=== PATIENT | male | born 1975 | race Two or more races ===

== ENCOUNTER 2024-08-03 11:09 | Outpatient (AMB) | payer OTHER, SELFPAY ==
--- NOTE | 2024-08-03 11:42 | AM.OFFWIN_ITS ---
Intake Vital Signs 08/03/24 11:43 Height 5 ft 7 in Weight 198 lb BMI 31.0 BP 122/80 Blood Pressure Location Rt brachial Position Sitting Pulse 66 Pulse Source Pulse Oximeter Temp 98.8 F Temp Source Oral Pulse Oximetry (%) 98 Oxygen Delivery Method Room Air Intake Visit Reasons: [employer] 2ND SHIFT Flu like symptoms Intake Note: Patient here for cough, chills, loss of appetite, weakness, dizziness and fatigued that started Friday. Patient Tobacco Use Status: Current someday Tobacco user Allergies No Known Allergies Allergy (Verified 08/03/24 11:44) Do you need a note to return to daycare/school/sports/work: No HPI HPI Comments History of Present Illness Details History - The patient is a 48-year-old male pres enting with symptoms consistent with an influenza-like illness. - Symptoms initiated 4 days ago, charact erized by a persistence of subjective fever - No official temperature readings were taken; however, the patient reports fluctuating fever perceptions. - Denies any association of body aches, respiratory difficulties such as shortness of breath, and wheezing with the current illness. - The patient is a light smoker but has no significant respiratory history and no use of inhalers. - Reports significant fatigue and decrea sed appetite. - Has taken no pharmacological agents fo r symptom relief to date. - Patient did not exhibit family contagi on or previous flu vaccinations for this season, nor had testing for COVID at home. Physical Exam General: Cooperative, healthy appearing, comfortable and no acute distress Orientation/consciousness: Patient oriented x3 Limitations: No limitations Head: Normal to inspection Ears: Hearing grossly normal bilaterally, external ears normal and TM's normal bilaterally Nose: Normal external nose present, Normal nares present and No nasal discharge present Face and sinus: Normal facial exam and Yes sinuses nontender Mouth: Normal oral and palatal mucosa present and moist mucous membranes Throat: Yes tonsils normal, Yes uvula midline. Posterior oropharynx erythema Eyes: Appearance normal, both eyes and all related structures Neck: Normal visual inspection Respiratory: Clear to auscultation bilaterally. Normal respiratory effort, able to speak in complete sentences, no respiratory distress, not tachypneic, no tripod positioning and no use of accessory muscles Cardiovascular: Regular rate and rhythm. Normal S1 and S2 Skin: No rashes or lesions noted Neuro: Patient oriented x3 Extremities: Normal to inspection and Yes no clubbing, cyanosis or edema PFSH Social History Patient Tobacco Use Status: Current someday Tobacco user Review of Systems Const All systems reviewed & are unremarkable except as noted in HPI and below Physical Exam Vital Signs: Last Vital Signs Temp 98.8 F 08/03/24 11:43 Pulse 66 08/03/24 11:43 BP 122/80 08/03/24 11:43 Pulse Ox 98 08/03/24 11:43 Oxygen Delivery Method Room Air 08/03/24 11:43 BMI result Body Mass Index 31.0 Assessment & Plan Assessment & Plan (1) Influenza-like illness: Code(s): J11.1 - Influenza due to unidentified influenza virus with other respiratory manifestations Plan: The patient exhibits symptoms consistent with an influenza-like illness. Testing for influenza, RSV, and COVID-19 was conducted with results expected by tomorrow. As Tamiflu treatment is no longer suitable due to timing, supportive therapy including adequate hydration, rest, and use of acetaminophen and ibuprofen is advised for symptom relief. Prognosis suggests the potential for a prolonged illness, lasting possibly two weeks with intermittent symptom fluctuation. The patient did not require a work note and is advised to resume normal activities once symptoms diminish and diagnostic results guide any necessary further intervention. Patient was informed and verbally consented to the use of an ambient scribe for clinic note documentation during this visit Orders: Orders SARS-CoV2/FLU/RSV Today R09.89 - Other specified symptoms and signs involving the circulatory and respiratory systems Coding Level of Care Code New Pt Level 3 (07660) Diagnoses Influenza-like illness J11.1
[2024-08-03 11:43] VITALS: BP 122/80; PULSE 66; TEMP 37.1; O2SAT 98; BMI 31.0
== END 2024-08-03 12:32 | disposition home or self-care (01) ==
PROVIDERS: Visit Provider Physician Assistant
DX: J11.1 Influenza due to unidentified influenza virus with other respiratory manifestations (principal)

== ENCOUNTER 2024-08-03 11:09 | Outpatient (REF) | payer OTHER, SELFPAY ==
[2024-08-03 14:51] LABS: Influenza A PCR POSITIVE (Negative); Influenza B PCR NEGATIVE (Negative); Resp Syncy Virus RNA Qual PCR NEGATIVE (Negative); SARS COV2 PCR INHOUSE NEGATIVE (Negative)
== END 2024-08-03 11:10 | disposition home or self-care (01) ==
LOC: HO.LAB 11:09
PROVIDERS: Visit Provider Physician Assistant
DX: J11.1 Influenza due to unidentified influenza virus with other respiratory manifestations (principal); R09.89 Other specified symptoms and signs involving the circulatory and respiratory systems
CPT/HCPCS: 0241U